=== PATIENT | male | born 1985 | race Caucasian/White ===

== ENCOUNTER 2021-04-24 15:17 | Outpatient (REF) | payer OTHER, SELFPAY ==
[2021-04-24 16:02] LABS: MANUAL DIFF FLAG NO
[2021-04-24 16:06] LABS: Basophils Percent Auto 0.3 % (0-2); Eosinophils Absolute Auto 0.1 X10*3/uL (0.0-0.4); Eosinophils Percent Auto 1.4 % (0-4); Hemoglobin 14.7 g/dl (14.0-18.0); Imm Gran Abs Auto 0.02 X10*3/uL (0.00-0.03); Imm Gran Pct Auto 0.3 % (0.0-0.4); Lymphocytes Absolute Auto 2.6 X10*3/uL (1.2-4.9); Lymphocytes Percent Auto 32.9 % (20-40); Mean Corpuscular HGB Conc 34.2 g/dl (31.0-36.0); Mean Corpuscular Hemoglobin 30.8 pg (27.0-33.0); Mean Corpuscular Volume 90.1 fL (80-98); Mean Platelet Volume 10.1 fL (9.4-12.4); Monocytes Absolute Auto 0.5 X10*3/uL (0.1-1.2); Monocytes Percent Auto 6.7 % (2-11); Neutrophils Absolute Auto 4.6 X10*3/uL (2.0-8.3); Neutrophils Percent Auto 58.4 % (45-73); Platelet Count 282 X10*3/uL (160-400); Red Blood Count 4.77 X10*6/uL (4.60-5.80); Red Cell Distribution Width 12.4 % (11.0-16.0); White Blood Count 7.9 X10*3/uL (4.8-10.8)
[2021-04-24 16:32] LABS: Alanine Aminotransferase 27 U/L (0-40); Albumin Level 4.6 g/dL (3.5-5.0); Alkaline Phosphatase 65 U/L (39-117); Amylase 28 U/L (28-100); Anion Gap 12 (12-20); Aspartate Amino Transferase 19 U/L (5-37); Bilirubin Direct 0.3 mg/dL (0.0-0.5); Bilirubin Total 1.1 mg/dL (0.0-1.0); Blood Urea Nitrogen 12 mg/dL (9-16); Calcium 9.7 mg/dL (8.4-10.2); Carbon Dioxide 29 mmol/L (22-29); Chloride 103 mmol/L (96-108); Estimated Glomerular Filt Rate > 60; Glucose Random 81 mg/dL (60-115); Lipase 22 U/L (8-78); Potassium 4.4 mmol/L (3.3-5.1); Sodium 140 mmol/L (135-145); Total Protein 7.3 g/dL (6.5-8.0)
[2021-04-25 11:55] LABS: Immunoglobulin A 155 mg/dL (47-310)
[2021-04-27 21:46] LABS: Transglutaminase Ab IgG 2 U/mL; Transglutaminase IgA 1 U/mL
[2021-04-27 22:57] LABS: Gliadin Deamidated IgA Ab 5 Units; Gliadin Deamidated IgG Ab 1 Units
[2021-05-04 12:06] LABS: Endomysial IgA Antibody Negative (Negative)
== END 2021-04-24 15:18 | disposition home or self-care (01) ==
LOC: HO.LAB 15:17
PROVIDERS: PCP Family Medicine; Visit Provider Internal Medicine
DX: R19.8 Other specified symptoms and signs involving the digestive system and abdomen (principal); R11.0 Nausea; R19.7 Diarrhea, unspecified
CPT/HCPCS: 36415; 80048; 80076; 82150; 82784; 83516; 83690; 85025; 86255; 86256

== ENCOUNTER 2021-04-25 15:28 | Outpatient (REF) | payer OTHER, SELFPAY ==
[2021-04-25 16:34] LABS: Leukocytes Stool Qualitative NEGATIVE (NEGATIVE)
[2021-04-26 08:50] LABS: CDIFF Ag Negative (Negative); CDIFF Internal ctrl Dots and bkg OK (V); CDiff Toxin Negative (Negative)
== END 2021-04-25 15:29 | disposition home or self-care (01) ==
LOC: HO.LNP 15:28
PROVIDERS: Visit Provider Internal Medicine
DX: R19.8 Other specified symptoms and signs involving the digestive system and abdomen (principal); R11.0 Nausea; R19.7 Diarrhea, unspecified
CPT/HCPCS: 87045; 87046; 87177; 87209; 87324; 87329; 87449; 89055

== ENCOUNTER 2021-04-27 15:55 | Outpatient (REF) | payer OTHER, SELFPAY ==
--- NOTE | ~2021-04-27 | US_ITS ---
EXAMINATION: US ABDOMEN COMPLETE CLINICAL INFORMATION: Abdominal pain. Epigastric pain. COMPARISON: None TECHNIQUE: Real-time imaging of the abdominal viscera. FINDINGS: PANCREAS: Normal. ABDOMINAL AORTA: The proximal, mid, and distal segments are normal in caliber. INFERIOR VENA CAVA: Visualized portions are normal. LIVER: The liver is mildly enlarged and demonstrates increased echogenicity suggesting hepatic steatosis. The liver contour is normal. A 6 mm shadowing echogenic focus seen suggesting calcified granuloma. No worrisome solid focal hepatic lesion. There is no intrahepatic biliary duct dilatation seen. GALLBLADDER: The gallbladder is physiologically distended without evidence of stones, sludge, polyps, wall thickening or pericholecystic fluid. COMMON BILE DUCT: Normal in caliber measuring 0.4 cm in diameter. RIGHT KIDNEY: No hydronephrosis. No renal calculi or focal parenchymal lesions. The kidney measures 9.3 cm in maximum dimension. LEFT KIDNEY: No hydronephrosis. No renal calculi or focal parenchymal lesions. The kidney measures 11.0 cm in maximum dimension. SPLEEN: Normal. The spleen measures 12 cm in maximum dimension. FREE FLUID: None. US/US abdomen complete IMPRESSION: 1. Mildly enlarged echogenic liver suggesting hepatic steatosis. 2. Probable calcified hepatic granuloma.
== END 2021-04-27 15:56 | disposition home or self-care (01) ==
LOC: HO.US 15:55
PROVIDERS: Visit Provider Internal Medicine
DX: R10.13 Epigastric pain (principal)
CPT/HCPCS: 76700

== ENCOUNTER 2021-05-04 07:52 | Day surgery (SDC) | payer OTHER, SELFPAY ==
[2021-04-27 10:01] VITALS: BMI 24.6
--- NOTE | 2021-05-02 14:05 | P.CONAN_ITS ---
Documented by User: Ruby Lofton 05/02/21 14:06 HPI - Anesthesia Eval Consult details Narrative: 35yo M for Upper Endoscopy and Colonoscopy [facility] Past Medical History Medical History Fatty liver Heartburn Surgical History Surgical History History of lymph node excision Social History Social History Are you a primary career representative to a significant other at home: No Do you presently have visiting nurse or other home services: No Patient Tobacco Use Status: Former Tobacco user Quit Date: 2 years ago Tobacco use type: Cigarette Use of substances other than those prescribed or required for medical reasons: No Have you been hit, kicked, punched, or otherwise hurt by someone within the past year? If so, by whom?: No Are you DNR?: No Advance Directives: No Advance Directives Information Provided: No Advance Directives on File: No Recently lost weight without trying: Yes How much weight loss: 2-13 pounds Eating poorly because of decreased appetite: No Nutrition screen score: 3 Meds Allergies Allergy/AdvReac Type Severity Reaction Status Date / Time morphine [MORPHINE] Allergy Unknown HIVES Verified 05/04/21 08:07 Home Medications Medication Instructions Recorded Confirmed Last Taken Type No Known Home Meds 04/27/21 04/27/21 Unknown History Exam Exam Date and Time: May 02, 2021 1405 Height,Weight and Vital Signs: Height 6 ft 1 in Weight 84.822 kg Pertinent Lab Results Pertinent Lab Results: Laboratory Tests 04/24/21 04/24/21 15:45 15:45 WBC 7.9 Hgb 14.7 Hct 43.0 Plt Count 282 Sodium 140 Potassium 4.4 Chloride 103 Carbon Dioxide 29 BUN 12 Creatinine 0.81 Assessment and Plan Assessment Anesthesia Assessment: Chart Reviewed Documented by User: Sweta Barrios 05/04/21 08:44 [facility] Past Medical History Medical History Fatty liver Heartburn Surgical History Surgical History History of lymph node excision Social History Social History Are you a primary career representative to a significant other at home: No Do you presently have visiting nurse or other home services: No Patient Tobacco Use Status: Former Tobacco user Quit Date: 2 years ago Tobacco use type: Cigarette Use of substances other than those prescribed or required for medical reasons: No Have you been hit, kicked, punched, or otherwise hurt by someone within the past year? If so, by whom?: No Are you DNR?: No Advance Directives: No Advance Directives Information Provided: No Advance Directives on File: No Recently lost weight without trying: Yes How much weight loss: 2-13 pounds Eating poorly because of decreased appetite: No Nutrition screen score: 3 Meds Allergies Allergy/AdvReac Type Severity Reaction Status Date / Time morphine [MORPHINE] Allergy Unknown HIVES Verified 05/04/21 08:07 Home Medications Medication Instructions Recorded Confirmed Last Taken Type No Known Home Meds 04/27/21 04/27/21 Unknown History Exam Airway Mallampati Class: II TM Dist: >3cm Neck ROM: Full Assessment and Plan Assessment Anesthesia Assessment: Anesthesia Plan Discussed and Chart Reviewed Final Anesthetic Review NPO: Yes ASA Class: II Final Preanesthetic Review: No Changes in Pt Med Stat, Meds/Allgs Chart Reviewed, Consent Obtained/Reviewed and Anes Risks/Benef Reviewed Patient Risk: Low Procedure Risk: Low Assessment/Block/Sedation in SS: Assess/Block/Sedation-SS Anesthetic Plan Anesthetic Plan: MAC: Disposition: Standard PACU
[2021-05-04 08:09] VITALS: BP 124/78; PULSE 60; RESP 16; TEMP 36.8; O2SAT 100
[2021-05-04] MEDS: Lactated Ringers 1,000 ML 100 ML IVCONT (08:24)
[2021-05-04 10:27] VITALS: BP 101/48; PULSE 63; RESP 16; TEMP 36.1; O2SAT 94
--- NOTE | 2021-05-04 10:30 | P.BOP_ITS ---
Brief Operative Note Date of Service: 05/04/21 Pre-op diagnosis: GERD, Diarrhea, Change in Bowels Post-op diagnosis: other (Gastritis, Hiatal hernia, R/O microscopic colitis) Procedure: EGD with biopsies and Colonoscopy to the cecum and TI with biopsies Surgeon: Marlon Mckeon Anesthesia: MAC Was an Collar Baster Jumpbasting used for this Procedure?: No Estimated blood loss (mL): 4.0 Pathology: other (A. Descending duodenum B. Gastric antrum C. gastric polyps D. EGb Junction at 36cm E. Terminal ileum F. ascending colon G. Descending colon) Condition: stable Disposition: PACU
[2021-05-04 10:42] VITALS: BP 107/71; PULSE 62; RESP 16; TEMP 36.1; O2SAT 96
--- NOTE | 2021-05-04 10:56 | OP_ITS ---
SURGEON: Marlon Mckeon MD INDICATIONS: The patient presents for evaluation of change in bowel habits, gastroesophageal reflux, and abdominal discomfort. Full consent has been obtained from him for both procedures, including risks of bleeding and perforation. PREOPERATIVE DIAGNOSIS: POSTOPERATIVE DIAGNOSIS: PROCEDURE PERFORMED: Esophagogastroduodenoscopy with biopsies, and colonoscopy to cecum and terminal ileum with biopsies. ESTIMATED BLOOD LOSS: COMPLICATIONS: ANESTHESIA: Monitored anesthesia care. ASSISTANTS: SPECIMENS: PREOPERATIVE DIAGNOSES: Change in bowel habits, gastroesophageal reflux, and abdominal discomfort. POSTOPERATIVE DIAGNOSES: Change in bowel habits, gastroesophageal reflux, and abdominal discomfort, hiatal hernia, gastric polyps, gastritis, rule out celiac disease, rule out microscopic colitis, internal hemorrhoids. DESCRIPTION OF PROCEDURE: The patient was placed in the left lateral decubitus position. The Olympus video gastroscope was passed in the posterior oropharynx and upper esophagus under direct vision. The scope was passed slowly into the distal esophagus. The gastroesophageal junction appeared at 36 cm. There was some irregularity, some edema, and erythema consistent with reflux. There was no esophagitis. There was no definitive evidence of Salazar's mucosa. There was a small hiatal hernia. The scope was advanced to pylorus and duodenum was cannulated to the descending portion. The duodenum including the bulb appeared normal without mass or ulceration. Biopsies were obtained from the descending duodenum. The scope was withdrawn back into the stomach. The gastric antrum had some areas of mild erythema, but no erosions or ulceration. There was good peristalsis. Biopsies were obtained. The scope was retroflexed visualizing the proximal stomach carefully, which appeared normal, without any mass or ulceration, other than multiple hyperplastic appearing gastric polyps. Three of these were biopsied. The scope was straightened out and withdrawn back into the esophagus. I obtained multiple biopsies of the EG junction at 36 cm. Proximal to that, the esophageal mucosa appeared normal. The scope was withdrawn from the patient. He was turned around for colonoscopy. The digital rectal exam revealed no abnormalities. The Olympus video pediatric colonoscope was entered into the rectum and advanced easily to the cecum. Once in the cecum, I did identify normal-appearing cecal pouch with appendiceal orifice and a normal-appearing ileocecal valve. The terminal ileum was cannulated and appeared normal. Biopsies were obtained from the terminal ileum. Scope was withdrawn back in the colon. The entire cecum and ileocecal valve appeared normal. The scope was slowly withdrawn assessing all mucosal surfaces carefully. Preparation was excellent. I did not visualize any sign of polyps, colitis, nor angiodysplasia. Random biopsies were obtained in the ascending and descending colon. In the rectum, scope was retroflexed visualizing small internal hemorrhoids, but no other pathology. The rectal mucosa appeared normal. The scope was straightened out and withdrawn from the patient. He tolerated both procedures well and was returned to recovery area in stable condition. IMPRESSION: 1. Rule out celiac disease. 2. Mild gastritis. 3. Hiatal hernia and reflux. 4. Gastric polyps. 5. Rule out microscopic colitis. 6. Internal hemorrhoids. PLAN: The results of biopsies will be checked. At this point, he is not using any medication for his GI symptoms. I shall start him on omeprazole 20 mg daily and dicyclomine 10 mg or 20 mg to use on a p.r.n. basis. He will see me in 1 or 2 months for a followup visit. His recent workup including abdominal ultrasound, stool specimens, and laboratories were all negative. MD BETTY Avila/JAYSON / [id number]
== END 2021-05-04 11:22 | disposition home or self-care (01) ==
PROVIDERS: PCP Family Medicine; Visit Provider Internal Medicine
PROC: (CPT 45380; principal; 2021-05-04 09:10)
DX: R19.7 Diarrhea, unspecified (principal); R19.4 Change in bowel habit; K64.8 Other hemorrhoids; K31.7 Polyp of stomach and duodenum; K21.9 Gastro-esophageal reflux disease without esophagitis; K20.80 Other esophagitis without bleeding; K29.70 Gastritis, unspecified, without bleeding; K76.0 Fatty (change of) liver, not elsewhere classified; R12 Heartburn; Z87.891 Personal history of nicotine dependence; Z88.8 Allergy status to other drugs, medicaments and biological substances
CPT/HCPCS: 45380; 43239; 88305; 88342; J3010